=== PATIENT | male | born 1995 | race Asian ===

== ENCOUNTER 2019-02-02 18:05 | Emergency (ER) | payer OTHER ==
[~2019-02-02] VITALS: Ht 160 cm; Wt 64.4 kg
[2019-02-02 18:18] VITALS: BP 121/86
--- NOTE | 2019-02-02 18:18 | NUR ---
ED Nurse Note: Patient arrived to ED complaining of nausea and abdominal pain x 1 week. Patient states the abdominal pain only occurs after eating. Patient was just at urgent care and states that they told him to come to the ED to r/o appendicitis. VSS, no s/s of acute distress noted.
[2019-02-02] MEDS ORDERED: Omnipaque-300 100ml vial INJ PRN (18:30)
[2019-02-02 19:08] LABS: BASOPHILS % (AUTO) 1.4 % (0.0-2.0); EOSINOPHILS % (AUTO) 4.4 % (0.0-3.0); HEMOGLOBIN 16.3 G/DL (14.2-18.0); LYMPHOCYTES % (AUTO) 25.7 % (20.0-45.0); MEAN CORPUSCULAR VOLUME 88 FL (80-99); MONOCYTES % (AUTO) 9.3 % (1.0-10.0); NEUTROPHILS % (AUTO) 59.1 % (45.0-75.0); PLATELET COUNT 332 K/UL (150-450); RED BLOOD COUNT 5.47 M/UL (4.70-6.10); RED CELL DISTRIBUTION WIDTH 11.3 % (11.6-14.8); WHITE BLOOD COUNT 8.9 K/UL (4.8-10.8)
--- NOTE | 2019-02-02 19:15 | NUR ---
ED Nurse Note: Recieved pt on [facility] awake, alert and orieneted x 4, on cardiac monitoring, has patent IV line in right ac area, intact and patent, fluids completed, pt is here for abd pain, rated at 2/10, urine sample collected and sent, pt denies any other distress or concerns. will resume care as ordered and continue to closely monitor, pt waiting for imaging to be done.
[2019-02-02 19:24] LABS: ANION GAP 11 mmol/L (5-15); BLOOD UREA NITROGEN 16 mg/dL (7-18); CALCIUM 8.8 MG/DL (8.5-10.1); CARBON DIOXIDE 27 MMOL/L (21-32); CHLORIDE 102 MMOL/L (98-107); CREATININE 0.9 MG/DL (0.55-1.30); POTASSIUM 3.7 MMOL/L (3.5-5.1); SODIUM 140 MMOL/L (136-145)
[2019-02-02 19:29] LABS: ALANINE AMINOTRANSFERASE 43 U/L (12-78); ALBUMIN 4.1 G/DL (3.4-5.0); ALKALINE PHOSPHATASE 77 U/L (46-116); ASPARTATE AMINO TRANSFERASE 18 U/L (15-37); BILIRUBIN,TOTAL 0.3 MG/DL (0.2-1.0)
--- NOTE | 2019-02-02 19:34 | Emergency Room Report ---
History of Present Illness General Chief Complaint: Abdominal Pain Source: Patient Present Illness HPI 23-year-old male sent in from urgent care center for right lower quadrant abdominal pain. Patient visited urgent care center for subjective fevers and diffuse abdominal pain, and URI symptoms. Patient symptoms started 2 weeks ago. At urgent care center [facility] had right lower quadrant and left upper quadrant tenderness. Patient did not take any medications other than NyQuil for symptom control. Patient denies any nausea vomiting diarrhea constipation. Patient said no prior abdominal surgeries. Allergies: Coded Allergies: CHEESE (Verified Allergy, Unknown, 02/02/19) Dairy (Verified Allergy, Unknown, 02/02/19) Nursing Documentation-[facility] Past Medical History: No Stated History Review of Systems Constitutional: Reports: fever; Denies: chills Respiratory: Denies: cough, shortness of breath Cardiovascular: Denies: chest pain, palpitations Gastrointestinal: Reports: abdominal pain; Denies: diarrhea, vomiting Genitourinary: Denies: hematuria, pain Musculoskeletal: Denies: joint swelling Skin: Denies: rash, lesions Neurological: Denies: headache, dizziness Physical Exam Vital Signs Date Time Temp Pulse Resp B/P (MAP) Pulse Ox O2 Delivery O2 Flow Rate FiO2 02/02/19 18:11 98.8 81 16 121/86 (98) 99 Room Air Sp02 EP Interpretation: reviewed General Appearance: well appearing, no apparent distress, non-toxic Head: normocephalic, atraumatic Eyes: bilateral eye normal inspection ENT: hearing grossly normal, EOM grossly intact, moist mucus membranes Neck: supple Respiratory: lungs clear, normal breath sounds, no respiratory distress, speaking full sentences Cardiovascular #1: regular rate, rhythm, normal capillary refill Cardiovascular #2: 2+ radial (R), 2+ radial (L) Gastrointestinal: soft, no mass, non-distended, no guarding, no hernia, no rebound, tenderness - Right lower quadrant, left upper quadrant, mild in nature Rectal: deferred Musculoskeletal: moves extm spontaneously, no lower extremity edema Neurologic: grossly normal Psychiatric: mood/affect normal Skin: warm/dry, normal turgor Medical Decision Making Diagnostic Impression: Primary Impression: Abdominal pain Additional Impressions: Fever Viral illness ER Course 23-year-old male sent in for right lower quadrant and left upper quadrant abdominal pain associated with fevers for evaluation of appendicitis from urgent care center. Found to have tenderness in right lower quadrant, left upper quadrant, no rebound, guarding, or rigidity Will perform laboratory testing and CT scan to evaluate. Laboratory Tests Test 02/02/19 18:50 02/02/19 19:45 White Blood Count 8.9 K/UL (4.8-10.8) Red Blood Count 5.47 M/UL (4.70-6.10) Hemoglobin 16.3 G/DL (14.2-18.0) Hematocrit 48.0 % (42.0-52.0) Mean Corpuscular Volume 88 FL (80-99) Mean Corpuscular Hemoglobin 29.8 PG (27.0-31.0) Mean Corpuscular Hemoglobin Concent 34.0 G/DL (32.0-36.0) Red Cell Distribution Width 11.3 % (11.6-14.8) L Platelet Count 332 K/UL (150-450) Mean Platelet Volume 6.8 FL (6.5-10.1) Neutrophils (%) (Auto) 59.1 % (45.0-75.0) Lymphocytes (%) (Auto) 25.7 % (20.0-45.0) Monocytes (%) (Auto) 9.3 % (1.0-10.0) Eosinophils (%) (Auto) 4.4 % (0.0-3.0) H Basophils (%) (Auto) 1.4 % (0.0-2.0) Sodium Level 140 MMOL/L (136-145) Potassium Level 3.7 MMOL/L (3.5-5.1) Chloride Level 102 MMOL/L (98-107) Carbon Dioxide Level 27 MMOL/L (21-32) Anion Gap 11 mmol/L (5-15) Blood Urea Nitrogen 16 mg/dL (7-18) Creatinine 0.9 MG/DL (0.55-1.30) Estimate Glomerular Filtration Rate > 60 mL/min (>60) Glucose Level 96 MG/DL (74-106) Calcium Level 8.8 MG/DL (8.5-10.1) Total Bilirubin 0.3 MG/DL (0.2-1.0) Aspartate Amino Transferase (AST) 18 U/L (15-37) Alanine Aminotransferase (ALT) 43 U/L (12-78) Alkaline Phosphatase 77 U/L (46-116) Total Protein 8.1 G/DL (6.4-8.2) Albumin 4.1 G/DL (3.4-5.0) Globulin 4.0 g/dL Albumin/Globulin Ratio 1.0 (1.0-2.7) Lipase 172 U/L (73-393) Urine Color Pale yellow Urine Appearance Clear Urine pH 7 (4.5-8.0) Urine Specific [place] 1.010 (1.005-1.035) Urine Protein Negative (NEGATIVE) Urine Glucose (UA) Negative (NEGATIVE) Urine Ketones Negative (NEGATIVE) Urine Blood Negative (NEGATIVE) Urine Nitrite Negative (NEGATIVE) Urine Bilirubin Negative (NEGATIVE) Urine Urobilinogen Normal MG/DL (0.0-1.0) Urine Leukocyte Esterase Negative (NEGATIVE) Lab Results Impression CBC within normal limits, chemistry within normal limits, urinalysis within normal limits. CT/MRI/US Diagnostic Results CT/MRI/US Diagnostic Results : Impression Final Report EXAM: CT Abdomen and Pelvis With Intravenous Contrast CLINICAL HISTORY: ABD PAIN TECHNIQUE: Axial computed tomography images of the abdomen and pelvis with intravenous contrast. CTDI is 14.2 mGy and DLP is 852.2 mGy-cm. One or more of the following dose reduction techniques were used: automated exposure control, adjustment of the mA and/or kV according to patient size, use of iterative reconstruction technique. COMPARISON: No relevant prior studies available. FINDINGS: Lung bases: No significant abnormality. ABDOMEN: Liver: No significant abnormality. Gallbladder and bile ducts: No significant abnormality. No calcified stones. Pancreas: No significant abnormality. Spleen: No significant abnormality. Adrenals: No significant abnormality. Kidneys and ureters: No significant abnormality. No hydronephrosis. Stomach and bowel: No significant abnormality. Bowel is nondilated. PELVIS: Appendix: No findings to suggest acute appendicitis. Bladder: Thickening of the underdistended urinary bladder. Reproductive: Unremarkable as visualized. ABDOMEN and PELVIS: Intraperitoneal space: No significant abnormality. No free air. Bones/joints: No acute fracture or malalignment. Soft tissues: No significant abnormality. Vasculature: No significant abnormality. No abdominal aortic aneurysm. Lymph nodes: No significant abnormality. IMPRESSION: Thickening of the underdistended urinary bladder. Urinalysis may be considered if there is clinical concern for cystitis. Radiologist: Magaly Benitez MD Electronically Signed: 02/02/19 21:03 Last Vital Signs Date Time Temp Pulse Resp B/P (MAP) Pulse Ox O2 Delivery O2 Flow Rate FiO2 02/02/19 21:36 99.0 81 18 119/79 98 Room Air Status: improved Reevaluation Impression CT abdomen and lab testing reviewed. Patient has no signs of appendicitis. Patient likely has viral illness. Recommended following up outpatient. Patient given warning signs of when to return to emergency room. Disposition: HOME, SELF-CARE Condition: Stable Referrals: [facility],REFERRING (PCP) Patient Instructions: Abdominal Pain, Adult, Fever, Adult Additional Instructions: Please follow-up with your primary care doctor in 2 to 3 days for reevaluation. Serge Whittaker M.D. Feb 02, 2019 19:34
[2019-02-02 19:45] VITALS: BP 117/67
--- NOTE | 2019-02-02 19:50 | NUR ---
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 iv intact and patent. consent signed by patient and witnessed by rn.
[2019-02-02 20:25] LABS: APPEARANCE,URINE CLEAR; BILIRUBIN, URINE NEGATIVE (NEGATIVE); COLOR,URINE PALE YELLOW; GLUCOSE, URINE (UA) NEGATIVE (NEGATIVE); KETONES,URINE NEGATIVE (NEGATIVE); LEUKOCYTE ESTERASE ,URINE NEGATIVE (NEGATIVE); NITRITE,URINE NEGATIVE (NEGATIVE); PH,URINE 7 (4.5-8.0); PROTEIN,URINE NEGATIVE (NEGATIVE); UROBILINOGEN,URINE NORMAL MG/DL (0.0-1.0)
--- NOTE | 2019-02-02 21:04 | Diagnostic Imaging Report ---
EXAM: CT Abdomen and Pelvis With Intravenous Contrast CLINICAL HISTORY: ABD PAIN TECHNIQUE: Axial computed tomography images of the abdomen and pelvis with intravenous contrast. CTDI is 14.2 mGy and DLP is 852.2 mGy-cm. One or more of the following dose reduction techniques were used: automated exposure control, adjustment of the mA and/or kV according to patient size, use of iterative reconstruction technique. COMPARISON: No relevant prior studies available. FINDINGS: Lung bases: No significant abnormality. ABDOMEN: Liver: No significant abnormality. Gallbladder and bile ducts: No significant abnormality. No calcified stones. Pancreas: No significant abnormality. Spleen: No significant abnormality. Adrenals: No significant abnormality. Kidneys and ureters: No significant abnormality. No hydronephrosis. Stomach and bowel: No significant abnormality. Bowel is nondilated. PELVIS: Appendix: No findings to suggest acute appendicitis. Bladder: Thickening of the underdistended urinary bladder. Reproductive: Unremarkable as visualized. ABDOMEN and PELVIS: Intraperitoneal space: No significant abnormality. No free air. Bones/joints: No acute fracture or malalignment. Soft tissues: No significant abnormality. Vasculature: No significant abnormality. No abdominal aortic aneurysm. Lymph nodes: No significant abnormality. IMPRESSION: Thickening of the underdistended urinary bladder. Urinalysis may be considered if there is clinical concern for cystitis.
[2019-02-02 21:15] VITALS: BP 119/79
--- NOTE | 2019-02-02 21:25 | NUR ---
ER DISCHARGE NOTE: Patient is cleared to be discharged per ERMD, pt is aox4, on room air, with stable vital signs. pt was given dc and prescription instructions, pt was able to verbalize understanding, pt id band and iv site removed without complications. pt is able to ambulate with steady gait. pt took all belongings.
[2019-02-02 21:36] VITALS: BP 119/79
== END 2019-02-02 21:37 | disposition home or self-care (01) ==
LOC: EMR 18:47
DX: R10.31 Right lower quadrant pain (principal); R50.9 Fever, unspecified; B34.9 Viral infection, unspecified; Z91.011 Allergy to milk products
CPT/HCPCS: 36415; 74177; 80053; 81003; 83690; 85025; 96360; 99284; Q9967

== ENCOUNTER 2019-05-21 10:37 | Emergency (ER) | payer OTHER ==
[~2019-05-21] VITALS: Ht 165.1 cm; Wt 59.9 kg
[2019-05-21 10:37] VITALS: BP 119/77
--- NOTE | 2019-05-21 10:57 | NUR ---
ED Nurse Note: PT.AAOX4. AMBULATORY. WALKED IN TO ER [facility]. PER PT., HE HAS BEEN HAVING FEVER X 3 DAYS WITH TEMP OF 103 AND STARTED HVAING COUGH LAST NIGHT. PER PT. TOOK TYLENOL 12 HRS AGO. PER PT. HE WORKES IN THE [facility] IN A [facility]
--- NOTE | 2019-05-21 11:18 | Emergency Room Report ---
History of Present Illness General Chief Complaint: Flu Like Symptoms Source: Patient Present Illness HPI Patient presents with complaints of fever and cough over the past 3 days He had taken a Tylenol and feels that the temperature has significantly decreased And actually reports feeling better today however with the previous documented fever and cough he was concerned and came to the ER denies any chest pain he does report previous And current smoking history Denies any neck pain or photophobia denies any vomiting or diarrhea denies any obvious known contact with covid-19 patient Allergies: Coded Allergies: CHEESE (Verified Allergy, Unknown, 02/02/19) Dairy (Verified Allergy, Unknown, 02/02/19) Uncoded Allergies: SEAFOOD (Allergy, Unknown, 05/21/19) COVID-19 Screening Contact w/high risk pt: Yes Recent Travel to affected area: No Experienced COVID-19 symptoms?: Yes COVID-19 symptoms experienced: Fever (T>100.4F or >38C), Cough Patient History Past Medical History: see triage record Reviewed Nursing Documentation: PMH: Agreed; PSxH: Agreed Nursing Documentation-PMH Past Medical History: No Stated History Review of Systems All Other Systems: negative except mentioned in HPI Physical Exam Vital Signs Date Time Temp Pulse Resp B/P (MAP) Pulse Ox O2 Delivery O2 Flow Rate FiO2 05/21/19 10:29 98.4 88 20 119/77 (91) 97 Room Air Sp02 EP Interpretation: reviewed, normal General Appearance: well appearing, no apparent distress Head: normocephalic, atraumatic Eyes: bilateral eye PERRL, bilateral eye EOMI ENT: hearing grossly normal, normal pharynx, TMs + canals normal, uvula midline Neck: full range of motion, supple, no meningismus, no bony tend Respiratory: lungs clear, no respiratory distress, no retraction, no accessory muscle use Cardiovascular #1: normal peripheral pulses, regular rate, rhythm, no edema Gastrointestinal: normal bowel sounds, non tender, soft, no mass, no organomegaly, non-distended, no guarding, no hernia, no pulsatile mass, no rebound Musculoskeletal: normal inspection Neurologic: motor strength/tone normal, oriented x3, sensory intact, responsive Psychiatric: mood/affect normal Skin: no rash Lymphatic: normal inspection, no adenopathy Medical Decision Making Diagnostic Impression: Primary Impression: URI (upper respiratory infection) ER Course Given the patient's complaints and symptoms multiple differentials and consideration including but not limited to covid-19, flu, URI, pneumonia Patient had x-ray imaging obtained with flu swab patient Respiratory barry is appropriate lung sounds are clear and saturation is normal Patient does not meet initial covid-19 testing criteria through Department of Health If he does desire further testing he is encouraged to follow testing centers that are set up in the [facility] Follow-up with primary physician And possible private laboratory examination INFLUENZA A ANTIGEN Final INFLUENZAE A RESULT NEGATIVE REF RANGE: NEGATIVE INFLUENZA B ANTIGEN Final INFLUENZAE B RESULT NEGATIVE REF RANGE: NEGATIVE Chest X-Ray Diagnostic Results Chest X-Ray Diagnostic Results : Chest X-Ray Ordered: Yes # of Views/Limited/Complete: 1 View Indication: Shortness of Breath EP Interpretation: Yes Interpretation: no consolidation, no effusion, no pneumothorax Impression: No acute disease Electronically Signed by: Oren Conklin DO Last Vital Signs Date Time Temp Pulse Resp B/P (MAP) Pulse Ox O2 Delivery O2 Flow Rate FiO2 05/21/19 10:37 88 20 Room Air 05/21/19 10:37 98.4 119/77 97 Status: improved Disposition: HOME, SELF-CARE Condition: Improved Referrals: NOT CHOSEN [facility],REFERRING (PCP) Additional Instructions: Patient is provided with the discharge instructions notified to follow up with primary doctor in the next 2-3 days otherwise return to the er with any worsening symptoms. Please note that this report is being documented using Tasted Menu technology. This can lead to erroneous entry secondary to incorrect interpretation by the dictating instrument. Oren Conklin DO May 21, 2019 11:18
--- NOTE | 2019-05-21 11:45 | NUR ---
ED Nurse Note: FLU SWAB COLLECTED; SENT DOWN TO LAB.
[2019-05-21 13:09] VITALS: BP 124/78
--- NOTE | 2019-05-21 13:09 | NUR ---
ER DISCHARGE NOTE: Patient is cleared to be discharged per ERMD, pt is aox4, on room air, with stable vital signs. pt was given dc instructions, pt was able to verbalize understanding, pt id band removed. pt is able to ambulate with steady gait. pt took all belongings.
--- NOTE | 2019-05-21 14:33 | Diagnostic Imaging Report ---
Indication: Cough Technique: One view of the chest Comparison: none Findings: Lungs and pleural spaces are clear. Heart size is normal. Impression: No acute process
== END 2019-05-21 13:09 | disposition home or self-care (01) ==
LOC: EMR 10:51
DX: J06.9 Acute upper respiratory infection, unspecified (principal); R50.9 Fever, unspecified; Z91.011 Allergy to milk products; Z91.013 Allergy to seafood; Z87.891 Personal history of nicotine dependence
CPT/HCPCS: 71045; 86710; 99283